=== PATIENT | male | born 1955 | race Caucasian/White ===

== ENCOUNTER 2022-06-05 09:15 | Emergency (ER) | payer MEDICARE, OTHER ==
[2022-06-05] MEDS ORDERED: cefTRIAXone 1 GM in Sodium Chloride 0.9% 50 ML IV ONE (09:59)
[2022-06-05] MEDS ORDERED: Benzocaine 20% Topical Spray UD MUCMEM ONE (09:59)
[2022-06-05] MEDS ORDERED: Lidocaine 2% Viscous Solution 15 ML UD PO ONE (09:59)
[2022-06-05] MEDS ORDERED: Ketorolac 60 MG/2 ML SDV IM ONE (10:00)
[2022-06-05] MEDS ORDERED: cefTRIAXone 1 GM Vial IM ONE (10:04)
== END 2022-06-05 10:39 | disposition home or self-care (01) ==
LOC: MW.ED 09:15
DX: K04.7 Periapical abscess without sinus (principal); K02.9 Dental caries, unspecified; Z88.7 Allergy status to serum and vaccine; Z95.1 Presence of aortocoronary bypass graft
CPT/HCPCS: 96372; 99282; A9270; J0696; J1885